=== PATIENT | male | born 1955 | race Caucasian/White ===

== ENCOUNTER 2018-06-07 15:00 | Outpatient (RCR) | payer OTHER, SELFPAY | END 2018-06-27 16:26 | disposition home or self-care (01) | LOC: PT 15:00 | PROVIDERS: Visit Provider Orthopaedic Surgery | DX: M17.11 Unilateral primary osteoarthritis, right knee (principal); Z74.09 Other reduced mobility; Z96.651 Presence of right artificial knee joint | CPT/HCPCS: 97010; 97014; 97110; 97116; 97140; 97163; G0283 ==